=== PATIENT | female | born 1935 | race Caucasian/White ===

== ENCOUNTER 2016-09-27 10:25 | Emergency (ER) | payer MEDICARE ==
[~2016-09-27] VITALS: Ht 167.6 cm; Wt 82.0 kg
[~2016-09-27 10:25] MED LIST: HYDR-3533 PO; NIFE60TA58 PO; ZOFR4TAB3 SL
[2016-09-27 11:06] VITALS: BP 146/87; PULSE 100; RESP 22; TEMP 98; O2SAT 100
--- NOTE | 2016-09-27 11:42 | PD ---
HPI Chief Complaint: Medical Clearance Time Seen by Provider: 11:16 Travel History International Travel<30 days: No Contact w/Intl Traveler<30days: No Traveled to known affect area: No History of Present Illness HPI 80-year-old female with history of hypertension, anxiety here with complaint of high blood pressure. Patient states that she was due to have a physicians appointment today. She typically gets "white coat hypertension", and gets quite nervous and anxious prior to physician appointments. Patient checked her blood pressure at home multiple times prior to going to her physician appointment and noted to be elevated, prompting her ER visit. She did have some mild associated palpitations with this, but no chest pain, shortness of breath. No recent changes in any of her medicines. She is here, she states her symptoms have essentially resolved. PFSH Past Medical History Arthritis: Yes Asthma: No Autoimmune Disease: No Blood Disorders: No Anxiety: Yes Depression: No Heart Rhythm Problems: No Cancer: No Cardiovascular Problems: Yes High Cholesterol: No Chemotherapy: No Chest Pain: Yes Congestive Heart Failure: No COPD: No Cerebrovascular Accident: Yes (TIA) Diabetes: No Diminished Hearing: No Endocrine: No Gastrointestinal Disorders: Yes GERD: Yes Glaucoma: No Genitourinary: No Headaches: Yes (WHEN PT WAS YOUNGER ) Hepatitis: No Hiatal Hernia: No Hypertension: Yes Immune Disorder: No Kidney Stones: No Musculoskeletal: No Neurologic: Yes (DIZZINESS) Psychiatric: No Reproductive: No Respiratory: No Immunizations Current: Yes Migraines: Yes Myocardial Infarction: No Pneumonia: Yes Radiation Therapy: No Renal Failure: No Seizures: No Sickle Cell Disease: No Sleep Apnea: No Thyroid Disease: No Ulcer: Yes Tetanus Vaccination: > 5 Years Menopausal: Yes : 6 Para: 6 Past Surgical History Abdominal Surgery: No AICD: No Appendectomy: No Arteriovenous Shunt: No Cardiac Surgery: No Cholecystectomy: No Ear Surgery: No Endocrine Surgery: No Eye Surgery: Yes (CATARACT, IMPLANTS) Genitourinary Surgery: No Gynecologic Surgery: No Insulin Pump: No Joint Replacement: No Oral Surgery: No Pacemaker: No Thoracic Surgery: No Other Surgery: Yes (BLISTER REMOVED NEAR RIGHT EYE) Social History Alcohol Use: No Tobacco Use: No Substance Use: No Allergies-Medications (Allergen,Severity, Reaction): Coded Allergies: Biaxin (Verified Allergy, Severe, Ulcers, 09/27/16) Cephalosporins (Verified Allergy, Severe, RASH, 09/27/16) Codeine (Verified Allergy, Severe, CHEST TIGHTNESS, 09/27/16) Cortisone (Verified Allergy, Severe, 09/27/16) Iodine (Verified Allergy, Severe, 09/27/16) Keflex (Verified Allergy, Severe, "CHEST WALDRON LIKE FIRE", 09/27/16) Latex (Verified Allergy, Severe, Rash, 09/27/16) Penicillin (Verified Allergy, Severe, "CHEST BURNED LIKE FIRE", 09/27/16) Sulfa (Verified Allergy, Severe, SWELLING", 09/27/16) Aspirin (Verified Adverse Reaction, Severe, INDIGESTION, 09/27/16) Corticosteroids (Verified Adverse Reaction, Severe, NOT SURE, 09/27/16) Valium (Verified Adverse Reaction, Severe, "SEVERE HEADACHE", 09/27/16) Uncoded Allergies: PLASTIC/LATEX? (Adverse Reaction, Mild, RASH,, 01/14/04) POLYESTER (Adverse Reaction, Mild, "BURNING FEELING", 11/13/08) Reported Meds & Prescriptions Reported Meds & Active Scripts Active Zofran Odt (Ondansetron Odt) 4 Mg Tab 4 Mg SL Q8HR PRN Lortab (Hydrocodone-Acetaminophen) 5-325 Mg Tab 1-2 Tab PO Q6H PRN Reported Nifedipine ER 24 HR (Nifedipine) 60 Mg Tab 60 Mg PO DAILY Review of Systems Except as stated in HPI: all other systems reviewed are Neg Physical Exam Narrative GENERAL: Well-appearing elderly female in no acute distress SKIN: Warm and dry. HEAD: Normocephalic. EYES: No scleral icterus. No injection or drainage. ENT: Mucous membranes pink and moist. NECK: Supple CARDIOVASCULAR: Regular rate and rhythm. No murmur appreciated. RESPIRATORY: No accessory muscle use. Clear to auscultation. Breath sounds equal bilaterally. GASTROINTESTINAL: Abdomen soft, non-tender, nondistended. MUSCULOSKELETAL: Normal gait NEUROLOGICAL: Awake and alert. Normal speech. PSYCHIATRIC: Anxious Data Data Last Documented VS Vital Signs Date Time Temp Pulse Resp B/P Pulse Ox O2 Delivery O2 Flow Rate FiO2 09/27/16 11:06 98.0 100 22 146/87 100 Orders Electrocardiogram (09/27/16 ) MDM Medical Decision Making Medical Screen Exam Complete: Yes Emergency Medical Condition: Yes Medical Record Reviewed: Yes Differential Diagnosis 80-year-old female with history of anxiety, hypertension here with complaint of same. Symptoms seem very situational with regards to similar symptoms occurring in the past with white coat hypertension. Now that she is here her symptoms have resolved. Given the slight associated palpitations, differential includes arrhythmia. No symptoms of hypertensive urgency/emergency. Narrative Course Patient placed on monitor. Twelve-lead EKG shows sinus rhythm without notable ST abnormalities, normal intervals. Specifically no evidence of prolonged QT, W Peter view, Brugada. Patient was reassured and will be discharged to home. Follow up with outpatient primary care provider for her anxiety. Diagnosis Primary Impression: Anxiety Additional Impression: Hypertension Qualified Code: I10 - Essential hypertension Referrals: Primary Care Physician call for appointment Patient Instructions: Anxiety (ED), Chronic Hypertension (ED), General Instructions Additional Instructions: Follow-up with primary care provider to manage blood pressure, anxiety. Return to the ER for the warning signs discussed. Med/Other Pt SpecificInfo: No Change to Meds Disposition: 01 DISCHARGE HOME Condition: Stable Merlene Ellis MD Sep 27, 2016 11:42
--- NOTE | 2016-09-28 23:13 | EKG ---
Date Performed: 09/27/2016 Time Performed: 11:26:39 PTAGE: 80 years EKG: Sinus rhythm POSSIBLE ANTERIOR MYOCARDIAL INFARCTION ABNORMAL ECG PREVIOUS TRACING : 01/11/2016 16.31 DOCTOR: Hoang Bills Interpretating Date/Time 09/28/2016 23:07:27
== END 2016-09-27 11:59 | disposition home or self-care (01) ==
LOC: NEDAMB 10:25
DX: F41.9 Anxiety disorder, unspecified (principal); I10 Essential (primary) hypertension
CPT/HCPCS: 93005

== ENCOUNTER 2017-11-23 15:03 | Emergency (ER) | payer MEDICARE ==
[~2017-11-23] VITALS: Ht 167.6 cm; Wt 81.3 kg
[2017-11-23 15:18] VITALS: BP 196/108; PULSE 95; RESP 17; TEMP 97.9; O2SAT 99
--- NOTE | 2017-11-23 15:37 | PD ---
HPI Chief Complaint: Headache Time Seen by Provider: 15:22 Travel History International Travel<30 days: No Contact w/Intl Traveler<30days: No Traveled to known affect area: No History of Present Illness HPI 81-year-old female with PMH of hypertension, TIA, anxiety presents to the ED for evaluation of 3/10 left lateral frontal headache. Gradual onset around lunchtime today. Patient endorses having an aura slightly before the headache began. On presentation she complains of mild nausea and dizziness. She denies vision changes, chest pain, palpitations, shortness of breath, abdominal pain, vomiting, dysuria, weakness of the extremities, difficulties with word finding. Patient states "I had my carotids checked not too long ago." She endorses compliance with daily Norvasc. PFSH Past Medical History Arthritis: Yes Asthma: No Autoimmune Disease: No Blood Disorders: No Anxiety: Yes Depression: No Heart Rhythm Problems: No Cancer: No Cardiovascular Problems: Yes High Cholesterol: No Chemotherapy: No Chest Pain: Yes Congestive Heart Failure: No COPD: No Cerebrovascular Accident: Yes (TIA) Diabetes: No Diminished Hearing: No Endocrine: No Gastrointestinal Disorders: Yes GERD: Yes Glaucoma: No Genitourinary: No Headaches: Yes (WHEN PT WAS YOUNGER ) Hepatitis: No Hiatal Hernia: No Hypertension: Yes Immune Disorder: No Kidney Stones: No Musculoskeletal: No Neurologic: Yes (DIZZINESS) Psychiatric: No Reproductive: No Respiratory: No Immunizations Current: Yes Migraines: Yes Myocardial Infarction: No Pneumonia: Yes Radiation Therapy: No Renal Failure: No Seizures: No Sickle Cell Disease: No Sleep Apnea: No Thyroid Disease: No Ulcer: Yes Menopausal: Yes : 6 Para: 6 Past Surgical History Abdominal Surgery: No AICD: No Appendectomy: No Arteriovenous Shunt: No Cardiac Surgery: No Cholecystectomy: No Ear Surgery: No Endocrine Surgery: No Eye Surgery: Yes (CATARACT, IMPLANTS) Genitourinary Surgery: No Gynecologic Surgery: No Insulin Pump: No Joint Replacement: No Oral Surgery: No Pacemaker: No Thoracic Surgery: No Other Surgery: Yes (BLISTER REMOVED NEAR RIGHT EYE) Social History Alcohol Use: No Tobacco Use: No Substance Use: No Allergies-Medications (Allergen,Severity, Reaction): Coded Allergies: Sulfa (Sulfonamide Antibiotics) (Unverified Allergy, Severe, SWELLING", ) cefepime (Unverified Allergy, Severe, RASH, 03/28/17) ceftaroline fosamil (Unverified Allergy, Severe, RASH, 03/28/17) cephalexin (Unverified Allergy, Severe, "CHEST WALDRON LIKE FIRE", 03/28/17) clarithromycin (Unverified Allergy, Severe, Ulcers, 03/28/17) codeine (Unverified Allergy, Severe, CHEST TIGHTNESS, 03/28/17) cortisone (Unverified Allergy, Severe, 03/28/17) iodine (Unverified Allergy, Severe, 03/28/17) latex (Unverified Allergy, Severe, Rash, 03/28/17) penicillin G (Unverified Allergy, Severe, "CHEST BURNED LIKE FIRE", ) potassium iodide (Unverified Allergy, Severe, 03/28/17) povidone-iodine (Unverified Allergy, Severe, 03/28/17) sodium iodide (Unverified Allergy, Severe, 03/28/17) sodium iodide (Unverified Allergy, Severe, 03/28/17) amcinonide (Unverified Adverse Reaction, Severe, NOT SURE, 03/28/17) aspirin (Unverified Adverse Reaction, Severe, INDIGESTION, 03/28/17) beclomethasone (Unverified Adverse Reaction, Severe, NOT SURE, 03/28/17) betamethasone (Unverified Adverse Reaction, Severe, NOT SURE, 03/28/17) desoximetasone (Unverified Adverse Reaction, Severe, NOT SURE, 03/28/17) dexamethasone (Unverified Adverse Reaction, Severe, NOT SURE, 03/28/17) diazepam (Unverified Adverse Reaction, Severe, "SEVERE HEADACHE", 03/28/17) fludrocortisone (Unverified Adverse Reaction, Severe, NOT SURE, 03/28/17) flunisolide (Unverified Adverse Reaction, Severe, NOT SURE, 03/28/17) fluocinolone acetonide (Unverified Adverse Reaction, Severe, NOT SURE, ) fluocinonide (Unverified Adverse Reaction, Severe, NOT SURE, 03/28/17) fluorometholone (Unverified Adverse Reaction, Severe, NOT SURE, 03/28/17) flurandrenolide (Unverified Adverse Reaction, Severe, NOT SURE, 03/28/17) fluticasone (Unverified Adverse Reaction, Severe, NOT SURE, 03/28/17) fluticasone furoate (Unverified Adverse Reaction, Severe, NOT SURE, ) hydrocortisone (Unverified Adverse Reaction, Severe, NOT SURE, 03/28/17) methylprednisolone (Unverified Adverse Reaction, Severe, NOT SURE, 03/28/17 ) mometasone furoate (Unverified Adverse Reaction, Severe, NOT SURE, 03/28/17 ) prednisolone (Unverified Adverse Reaction, Severe, NOT SURE, 03/28/17) prednisone (Unverified Adverse Reaction, Severe, NOT SURE, 03/28/17) triamcinolone (Unverified Adverse Reaction, Severe, NOT SURE, 03/28/17) Uncoded Allergies: PLASTIC/LATEX? (Adverse Reaction, Mild, RASH,, 01/14/04) POLYESTER (Adverse Reaction, Mild, "BURNING FEELING", 11/13/08) Reported Meds & Prescriptions Reported Meds & Active Scripts Active Zofran Odt (Ondansetron Odt) 4 Mg Tab 4 Mg SL Q8HR PRN Lortab (Hydrocodone-Acetaminophen) 5-325 Mg Tab 1-2 Tab PO Q6H PRN Reported Nifedipine ER 24 HR (Nifedipine) 60 Mg Tab 60 Mg PO DAILY Review of Systems Except as stated in HPI: all other systems reviewed are Neg Physical Exam Narrative GENERAL: Well-nourished, well-developed pleasant elderly white female in no acute distress. SKIN: Focused skin assessment warm/dry. HEAD: Normocephalic. Atraumatic. EYES: No scleral icterus. No injection or drainage. PERRLA. EOMI. NECK: Supple, trachea midline. No JVD or lymphadenopathy. CARDIOVASCULAR: Regular rate and rhythm without murmurs, gallops, or rubs. RESPIRATORY: Breath sounds clear and equal bilaterally. No accessory muscle use. GASTROINTESTINAL: Abdomen soft, non-tender, nondistended. Active bowel sounds. MUSCULOSKELETAL: No cyanosis, or edema. Moves the limbs spontaneously. NEUROLOGICAL: Awake and alert. Cranial nerves II through XII intact. Motor and sensory grossly within normal limits. Five out of 5 muscle strength in all muscle groups. Normal speech. BACK: Nontender without obvious deformity. No CVA tenderness. Data Data Last Documented VS Vital Signs Date Time Temp Pulse Resp B/P (MAP) Pulse Ox O2 Delivery O2 Flow Rate FiO2 11/23/17 18:49 11/23/17 18:00 84 17 98 Room Air 11/23/17:18 97.9 Orders Orders Complete Blood Count With Diff (11/23/17 15:32) Comprehensive Metabolic Panel (11/23/17 15:32) Prothrombin Time / Inr (Pt) (11/23/17 15:32) Act Partial Throm Time (Ptt) (11/23/17 15:32) Ct Brain W/O Iv Contrast(Rout) (11/23/17 15:32) Ecg Monitoring (11/23/17 15:32) Iv Access Insert/Monitor (11/23/17 15:32) Oximetry (11/23/17 15:32) Sodium Chloride 0.9% Flush (Ns Flush) (11/23/17 15:45) Acetaminophen (Tylenol) (11/23/17 15:45) Ondansetron Inj (Zofran Inj) (11/23/17 15:45) Electrocardiogram (11/23/17 ) Troponin I (11/23/17 15:34) Labetalol Inj (Trandate Inj) (11/23/17 15:45) Thyroid Stimulating Hormone (11/23/17 15:55) Labetalol Inj (Trandate Inj) (11/23/17 17:15) Ed Discharge Order (11/23/17 18:06) Labs Laboratory Tests Test 11/23/17 15:40 White Blood Count 11.5 TH/MM3 Red Blood Count 5.11 MIL/MM3 Hemoglobin 15.2 GM/DL Hematocrit 44.3 % Mean Corpuscular Volume 86.6 FL Mean Corpuscular Hemoglobin 29.7 PG Mean Corpuscular Hemoglobin Concent 34.3 % Red Cell Distribution Width 15.1 % Platelet Count 267 TH/MM3 Mean Platelet Volume 8.3 FL Neutrophils (%) (Auto) 82.9 % Lymphocytes (%) (Auto) 9.3 % Monocytes (%) (Auto) 6.4 % Eosinophils (%) (Auto) 1.1 % Basophils (%) (Auto) 0.3 % Neutrophils # (Auto) 9.6 TH/MM3 Lymphocytes # (Auto) 1.1 TH/MM3 Monocytes # (Auto) 0.7 TH/MM3 Eosinophils # (Auto) 0.1 TH/MM3 Basophils # (Auto) 0.0 TH/MM3 CBC Comment DIFF FINAL Differential Comment Prothrombin Time 9.4 SEC Prothromb Time International Ratio 0.9 RATIO Activated Partial Thromboplast Time 29.2 SEC Blood Urea Nitrogen 15 MG/DL Creatinine 0.91 MG/DL Random Glucose 109 MG/DL Total Protein 8.3 GM/DL Albumin 4.0 GM/DL Calcium Level 9.4 MG/DL Alkaline Phosphatase 89 U/L Aspartate Amino Transf (AST/SGOT) 23 U/L Alanine Aminotransferase (ALT/SGPT) 36 U/L Total Bilirubin 0.2 MG/DL Sodium Level 142 MEQ/L Potassium Level 4.1 MEQ/L Chloride Level 109 MEQ/L Carbon Dioxide Level 26.6 MEQ/L Anion Gap 6 MEQ/L Estimat Glomerular Filtration Rate 59 ML/MIN Troponin I LESS THAN 0.02 NG/ML Thyroid Stimulating Hormone 3rd Gen 2.080 uIU/ML MDM Medical Decision Making Medical Screen Exam Complete: Yes Emergency Medical Condition: Yes Differential Diagnosis Hypertension versus hypertensive urgency versus cephalgia versus TIA versus CVA versus dysrhythmia versus other Narrative Course 81-year-old female with PMH of hypertension, TIA, anxiety presents to the ED for evaluation of 3/10 left lateral frontal headache. Gradual onset around lunchtime today. Preceded by an aura of flashing lights. On presentation she complains of mild nausea and dizziness. Patient states "I had my carotids checked not too long ago." She endorses compliance with daily Norvasc. Pulse 95, BP 196/108 on presentation. No focal neuro deficits on exam. IV was established. Patient was administered 4 mg Zofran and 20 mg labetalol IV. Patient's daughter is at bedside and states that the patient is noncompliant with her daily antihypertensive medications. The daughter states that she is concerned that her mother is unable to live on her own but unwilling to give up her independence. CBC and CMP without concerning abnormality. TSH normal. EKG: Rate 82, sinus rhythm. WA interval 191, QRS 96, QTc 414. Normal axis. No acute ST changes. Reviewed by Dr. Camacho. Troponin negative 1. CT brain no acute findings per radiology read. On recheck patient reports improvement of her headache symptoms. BP 173/84. Patient's administered a second dose of labetalol. BP improved to 161/76. The rn case management was called to bedside, recommend follow-up with the primary care for home health needs. Family are agreeable with this plan. Patient is instructed to resume medications as previously prescribed, follow up with her primary care provider this week as discussed, return for worsening symptoms. She indicated understanding of the instructions. She is agreeable to the care plan. She is stable and discharged home. Diagnosis Primary Impression: Hypertension Qualified Codes: I10 - Essential (primary) hypertension Additional Impression: Headache Qualified Codes: R51 - Headache Referrals: Primary Care Physician Additional Instructions: Rest, hydrate. Resume normal, gentle activities as tolerated. Resume at home medications as previously prescribed. Follow with your primary care this week as discussed. Return to the ED for worsening symptoms or any urgent or emergent medical condition. Disposition: 01 DISCHARGE HOME Condition: Stable Berenice Mortensen Nov 23, 2017 15:37
[2017-11-23 15:41] VITALS: O2SAT 98
[2017-11-23] MEDS ORDERED: LABETALOL HCL 100 MG/20 ML VIAL IV PUSH ONE ×2 (15:45→17:15)
[2017-11-23] MEDS ORDERED: ONDANSETRON HCL 4 MG/2 ML VIAL IV PUSH ONE (15:45)
[2017-11-23] MEDS ORDERED: ACETAMINOPHEN 325 MG TAB PO ONE (15:45)
[2017-11-23] MEDS ORDERED: SODIUM CHLORIDE 0.9% FLUSH 10 ML FLUSH IVF PRN (15:45)
[2017-11-23 16:07] LABS: AUTOMATED NEUTROPHIL # 9.6 TH/MM3 (1.8-7.7); BASOPHIL % 0.3 % (0.0-2.0); EOSINOPHIL # 0.1 TH/MM3 (0-0.4); EOSINOPHIL % 1.1 % (0.0-4.0); HEMATOCRIT 44.3 % (35.0-46.0); HEMOGLOBIN 15.2 GM/DL (11.6-15.3); LYMPH % 9.3 % (9.0-44.0); LYMPHOCYTE # 1.1 TH/MM3 (1.0-4.8); MEAN CELL VOLUME 86.6 FL (80.0-100.0); MEAN CORPUSCULAR HEMOGLOBIN 29.7 PG (27.0-34.0); MEAN CORPUSCULAR HGB CONC 34.3 % (32.0-36.0); MEAN PLATELET VOLUME 8.3 FL (7.0-11.0); MONO % 6.4 % (0.0-8.0); MONOCYTE # 0.7 TH/MM3 (0-0.9); NEUT % 82.9 % (16.0-70.0); PLATELET COUNT 267 TH/MM3 (150-450); RED BLOOD COUNT 5.11 MIL/MM3 (4.00-5.30); RED CELL DISTRIBUTION WIDTH 15.1 % (11.6-17.2); WHITE BLOOD COUNT 11.5 TH/MM3 (4.0-11.0)
[2017-11-23 16:18] LABS: INTERNATIONAL NORMALIZED RATIO 0.9 RATIO; PROTHROMBIN TIME - PATIENT 9.4 SEC (9.8-11.6)
[2017-11-23 16:27] VITALS: BP 205/85; PULSE 94; RESP 17; O2SAT 100
--- NOTE | 2017-11-23 16:38 | RADRPT ---
EXAM DATE/TIME: 11/23/2017 16:06 [facility] COMPARISON: CT BRAIN W/O CONTRAST, October 31, 2015, 20:38. INDICATIONS : Patient complains of headache, visual disturbance RADIATION DOSE: 35.35 CTDIvol (mGy) MEDICAL HISTORY : Hypertension. TIA SURGICAL HISTORY : Non-responsive. ENCOUNTER: Initial ACUITY: 1 day PAIN SCALE: 3/10 LOCATION: cranial TECHNIQUE: Multiple contiguous axial images were obtained of the head. Using automated exposure control and adj ustment of the mA and/or kV according to patient size, radiation dose was kept as low as reasonably a chievable to obtain optimal diagnostic quality images. DICOM format image data is available electro nically for review and comparison. FINDINGS: CEREBRUM: There is mild generalized atrophy. Ventricles are normal in size. There is mild periventricular white matter low attenuation, stable from the prior study. No evidence of midline shift, mass lesion, hem orrhage or acute infarction. No extra-axial fluid collections are seen. POSTERIOR FOSSA: The cerebellum and brainstem demonstrate no acute finding. The 4th ventricle is midline. The cerebe llopontine angle is unremarkable. EXTRACRANIAL: Visualized sinuses are clear. SKULL: The calvaria is intact. No evidence of skull fracture. CONCLUSION: 1. Stable noncontrast head CT. No acute finding is identified. 2. Stable chronic changes include mild generalized atrophy and chronic periventricular white matter c chi. Cody Marcial MD on November 23, 2017 at 16:32 Board Certified Radiologist. This report was verified electronically.
[2017-11-23 16:45] LABS: ALKALINE PHOSPHATASE 89 U/L (45-117); TOTAL BILIRUBIN ADULT 0.2 MG/DL (0.2-1.0); TOTAL PROTEIN 8.3 GM/DL (6.4-8.2)
[2017-11-23 16:46] LABS: ALT (GPT) 36 U/L (10-53); AST (GOT) 23 U/L (15-37); BICARBONATE 26.6 MEQ/L (21.0-32.0); BLOOD UREA NITROGEN 15 MG/DL (7-18); CALCIUM 9.4 MG/DL (8.5-10.1); CHLORIDE 109 MEQ/L (98-107); CREATININE 0.91 MG/DL (0.50-1.00); GLOMERULAR FILTRATION RATE 59 ML/MIN (>89); GLUCOSE,RANDOM 109 MG/DL (74-106); SODIUM (NA) 142 MEQ/L (136-145)
[2017-11-23 16:51] VITALS: BP 173/83; PULSE 81; RESP 17; O2SAT 100
[2017-11-23 17:22] VITALS: BP 177/82; PULSE 83; RESP 17; O2SAT 100
[2017-11-23 18:00] VITALS: BP 161/76; PULSE 84; RESP 17; O2SAT 98
--- NOTE | 2017-11-25 12:59 | EKG ---
Date Performed: 11/23/2017 Time Performed: 17:20:06 PTAGE: 81 years EKG: NORMAL Sinus rhythm Nondiagnostic T-waves in inferior leads BORDERLINE ECG Since PREVIOUS TRACING , no significant change noted PREVIOUS TRACIN09/27/2016 11.26 DOCTOR: Ross Santana Interpretating Date/Time 11/25/2017 12:57:15
== END 2017-11-23 18:51 | disposition home or self-care (01) ==
LOC: NEPE 15:03
DX: I10 Essential (primary) hypertension (principal); R51 Headache; R11.0 Nausea; Z86.73 Personal history of transient ischemic attack (TIA), and cerebral infarction without residual deficits
CPT/HCPCS: 70450; 80053; 84443; 84484; 85025; 85610; 85730; 93005; 96374; 96375; 96376; 99285; J2405

== ENCOUNTER 2018-02-19 09:19 | Observation (INO) ==
--- NOTE | 2018-02-19 10:26 | XR ---
EXAM DATE: 02/19/2018 10:22 AM EDT AGE/SEX: 82 years / Female INDICATIONS: Chest pain. Short of breath. CLINICAL DATA: This is the patient's initial encounter. Patient reports that signs and symptoms have been present for 1 day and indicates a pain score of 1/10. MEDICAL/SURGICAL HISTORY: None. None. COMPARISON: [facility] [place], CHEST SINGLE AP, 10/31/2015. . FINDINGS: Minimal parenchymal changes present in the right suprahilar region. Left lung clear. The heart and pulmonary vascularity are normal. The portion of the bony skeleton visualized is unremarkable. CONCLUSION: Minimal parental changes right suprahilar region. PA and lateral chest would be beneficial when the patient's clinically stable Electronically signed by: Dani Mosley MD 02/19/2018 10:25 AM EDT
[2018-02-19 10:28] LABS: Baso % (Auto) 0.3 % (0.0-2.0); Eos # (Auto) 0.1 th/mm3 (0.0-0.4); Eos % (Auto) 1.7 % (0.0-4.0); Hemoglobin 15.5 gm/dL (11.6-15.3); Lymph # (Auto) 1.1 th/mm3 (1.0-4.8); Mean Corpuscular HGB Conc 33.6 % (32.0-36.0); Mean Corpuscular Volume 86.2 fL (80.0-100.0); Mean Platelet Volume 8.8 fL (7.0-11.0); Mono # (Auto) 0.7 th/mm3 (0.0-0.9); Mono % (Auto) 9.5 % (0.0-8.0); Neut # (Auto) 5.9 th/mm3 (1.8-7.7); Neut % (Auto) 74.5 % (16.0-70.0); Platelet Count 244 th/mm3 (150-450); Red Blood Count 5.34 mil/mm3 (4.00-5.30); Red Cell Distribution Width 15.1 % (11.6-17.2); White Blood Count 7.9 th/mm3 (4.0-11.0)
[2018-02-19 10:37] LABS: Bilirubin,Urine Negative (Negative); Clarity,Urine Clear (Clear); Color,Urine Straw (Yellw/Straw); Glucose,Urine (UA) Negative (Negative); Leukocyte Esterase,Urine Small (Negative); Nitrite,Urine Negative (Negative); Specific Gravity,Urine 1.005 (1.002-1.035); Squamous Epithelial Cell,Urine 1 /hpf (0-5)
[2018-02-19 10:39] LABS: Activated Partial Thrombo Time 27.3 sec (24.3-30.1); INR 0.9 Ratio; Prothrombin Time 9.4 sec (9.8-11.6)
[2018-02-19 10:49] LABS: Albumin 4.1 g/dL (3.4-5.0); Anion Gap 13 meq/L (5-15); Aspartate Aminotransferase 20 U/L (15-37); Blood Urea Nitrogen 19 mg/dL (7-18); Carbon Dioxide 24.2 meq/L (21.0-32.0); Chloride 100 meq/L (98-107); Glomerular Filtration Rate 59 mL/min (>89); Glucose,Random 133 mg/dL (74-106); Magnesium 2.2 mg/dL (1.5-2.5); Potassium 3.8 meq/L (3.5-5.1); Sodium 137 meq/L (136-145)
[2018-02-19 10:50] LABS: Alanine Aminotransferase 30 U/L (10-53)
[2018-02-19 10:54] LABS: Alkaline Phosphatase 95 U/L (45-117); Total Protein 8.2 g/dL (6.4-8.2)
[2018-02-19 10:56] LABS: Creatine Kinase 79 U/L (26-192)
--- NOTE | 2018-02-19 11:19 | ED ---
HPI General Chief Complaint: Respiratory Symptoms Stated Complaint: SOB Time Seen by Provider: 02/19/18 09:51 Source: patient and family History of Present Illness 82-year-old female presents with shortness of breath and chest pain. Her daughter states she had a workup a couple years ago that she believes was okay but she is not sure. She states she has been admitted to [facility] before. Patient denies any other concurrent complaints. 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 Milligan did her last stress test. Quality is pressure MD Complaint: shortness of breath Onset (ago): day(s) Severity: moderate Consistency/Duration: intermittent Relieving factors: nothing Exacerbating factors: movement Associated symptoms: chest pain Treatment prior to arrival: none Related Data Home oxygen amount: none Home Medications Medication Instructions Recorded Confirmed nifedipine 30 mg PO DAILY 02/19/18 02/19/18 Allergies Allergy/AdvReac Type Severity Reaction Status Date / Time cefepime Allergy Severe RASH Verified 02/19/18 11:26 ceftaroline fosamil Allergy Severe RASH Verified 02/19/18 11:26 cephalexin Allergy Severe "CHEST Verified 02/19/18 11:26 WALDRON LIKE FIRE" clarithromycin Allergy Severe Ulcers Verified 02/19/18 11:26 codeine Allergy Severe CHEST Verified 02/19/18 11:26 TIGHTNESS cortisone Allergy Severe Rash Verified 02/19/18 11:26 iodine Allergy Severe Rash Verified 02/19/18 11:26 latex Allergy Severe Rash Verified 02/19/18 11:26 penicillin G Allergy Severe "CHEST Verified 02/19/18 11:26 BURNED LIKE FIRE" potassium iodide Allergy Severe Rash Verified 02/19/18 11:26 povidone-iodine Allergy Severe Rash Verified 02/19/18 11:26 sodium iodide Allergy Severe Rash Verified 02/19/18 11:26 sodium iodide Allergy Severe Rash Verified 02/19/18 11:26 Sulfa (Sulfonamide Allergy Severe SWELLING" Verified 02/19/18 11:26 Antibiotics) amcinonide AdvReac Severe NOT SURE Verified 02/19/18 11:26 aspirin AdvReac Severe INDIGESTION Verified 02/19/18 11:26 beclomethasone AdvReac Severe NOT SURE Verified 02/19/18 11:26 betamethasone AdvReac Severe NOT SURE Verified 02/19/18 11:26 desoximetasone AdvReac Severe NOT SURE Verified 02/19/18 11:26 dexamethasone AdvReac Severe NOT SURE Verified 02/19/18 11:26 diazepam AdvReac Severe "SEVERE Verified 02/19/18 11:26 HEADACHE" fludrocortisone AdvReac Severe NOT SURE Verified 02/19/18 11:26 flunisolide AdvReac Severe NOT SURE Verified 02/19/18 11:26 fluocinolone acetonide AdvReac Severe NOT SURE Verified 02/19/18 11:26 fluocinonide AdvReac Severe NOT SURE Verified 02/19/18 11:26 fluorometholone AdvReac Severe NOT SURE Verified 02/19/18 11:26 flurandrenolide AdvReac Severe NOT SURE Verified 02/19/18 11:26 fluticasone AdvReac Severe NOT SURE Verified 02/19/18 11:26 fluticasone furoate AdvReac Severe NOT SURE Verified 02/19/18 11:26 hydrocortisone AdvReac Severe NOT SURE Verified 02/19/18 11:26 methylprednisolone AdvReac Severe NOT SURE Verified 02/19/18 11:26 mometasone furoate AdvReac Severe NOT SURE Verified 02/19/18 11:26 prednisolone AdvReac Severe NOT SURE Verified 02/19/18 11:26 prednisone AdvReac Severe NOT SURE Verified 02/19/18 11:26 triamcinolone AdvReac Severe NOT SURE Verified 02/19/18 11:26 PLASTIC/LATEX? AdvReac Mild RASH, Uncoded 02/19/18 11:26 POLYESTER AdvReac Mild "BURNING Uncoded 02/19/18 11:26 FEELING" Review of Systems Except as stated in HPI: all other systems reviewed are negative [facility] Medical History Medical History Hypertension (Acute) TIA (transient ischemic attack) (Acute) Surgical History Surgical History History of eye surgery (Acute) Social History Social History Substance History: No History of Abuse Second Hand Smoke Exposure: No Smoking Status: Never smoker How Often Do You Have a Drink Containing Alcohol: Never Recent Travel in [facility] within the Last 8 Weeks: No Recent Out of Country Travel within the Last 8 Weeks: No Immunization History Tetanus Immunization: <5 Years Hx Influenza Vaccine This Season: Yes Exam Narrative Exam Narrative: GENERAL: 82 y/o female in no apparent distress SKIN: Focused skin assessment warm/dry. HEAD: Atraumatic. Normocephalic. EYES: Pupils equal and round. No scleral icterus. No injection or drainage. ENT: No nasal bleeding or discharge. Mucous membranes pink and moist. NECK: Trachea midline. CARDIOVASCULAR: Regular rate and rhythm. RESPIRATORY: No accessory muscle use. Clear to auscultation. Breath sounds equal bilaterally. GASTROINTESTINAL: Abdomen soft, non-tender, nondistended MUSCULOSKELETAL: No obvious deformities. No clubbing. No cyanosis NEUROLOGICAL: Awake. Motor grossly within normal limits. Normal speech Course Reevaluation(s) Reevaluation #1: Patient without new symptoms and agrees to chest pain observation for her chest pain and shortness of breath. Other ER workup without emergent process. There was a delay in lab when they did not see BNP that was originally ordered and this was then ran and was normal. Initial Documented Vital Signs Temperature 97.8 F 02/19/18 09:26 Pulse Rate 96 H 02/19/18 09:26 Respiratory Rate 20 02/19/18 09:26 Blood Pressure 167/79 H 02/19/18 09:26 Pulse Oximetry 99 02/19/18 09:26 Last Documented Vital Signs Temperature 97.8 F 02/19/18 09:26 Pulse Rate 80 02/19/18 13:31 Respiratory Rate 18 02/19/18 13:31 Blood Pressure 159/74 H 02/19/18 13:31 Pulse Oximetry 95 02/19/18 13:31 Medical Decision Making [facility] Narrative Medical decision making narrative: 82-year-old female with chest pain and shortness of breath over the past couple of days. Will check workup and reevaluate. Differential Diagnosis Differential Diagnosis: CHF, angina, anemia, renal failure, pneumonia Lab Data Lab results reviewed: Yes I reviewed the patient's lab results. Result diagrams: 02/19/18 09:56 02/19/18 09:56 Lab Results 02/19/18 02/19/18 02/19/18 Range/Units 09:56 09:56 09:56 WBC 7.9 (4.0-11.0) th/mm3 RBC 5.34 H (4.00-5.30) mil/mm3 Hgb 15.5 H (11.6-15.3) gm/dL Hct 46.0 (35.0-46.0) % MCV 86.2 (80.0-100.0) fL MCH 29.0 (27.0-34.0) pg MCHC 33.6 (32.0-36.0) % RDW 15.1 (11.6-17.2) % Plt Count 244 (150-450) th/mm3 MPV 8.8 (7.0-11.0) fL Neut % (Auto) 74.5 H (16.0-70.0) % Lymph % (Auto) 14.0 (9.0-44.0) % Rich % (Auto) 9.5 H (0.0-8.0) % Eos % (Auto) 1.7 (0.0-4.0) % Baso % (Auto) 0.3 (0.0-2.0) % Neut # (Auto) 5.9 (1.8-7.7) th/mm3 Lymph # (Auto) 1.1 (1.0-4.8) th/mm3 Rich # (Auto) 0.7 (0.0-0.9) th/mm3 Eos # (Auto) 0.1 (0.0-0.4) th/mm3 Baso # (Auto) 0.0 (0.0-0.2) th/mm3 WBC Differential . Differential Comment Auto diff final PT 9.4 L (9.8-11.6) sec INR 0.9 Ratio APTT 27.3 (24.3-30.1) sec Sodium 137 (136-145) meq/L Potassium 3.8 (3.5-5.1) meq/L Chloride 100 (98-107) meq/L Carbon Dioxide 24.2 (21.0-32.0) meq/L Anion Gap 13 (5-15) meq/L BUN 19 H (7-18) mg/dL Creatinine 0.91 (0.50-1.00) mg/dL Estimated GFR 59 L (>89) mL/min Random Glucose 133 H (74-106) mg/dL Lactic Acid (0.4-2.0) mmol/L Calcium 10.0 (8.5-10.1) mg/dL Magnesium 2.2 (1.5-2.5) mg/dL Total Bilirubin 0.4 (0.2-1.0) mg/dL AST 20 (15-37) U/L ALT 30 (10-53) U/L Alkaline Phosphatase 95 (45-117) U/L Total Creatine Kinase 79 (26-192) U/L Troponin I Less than 0.02 L (0.02-0.05) ng/mL B-Natriuretic Peptide (0-100) pg/mL Total Protein 8.2 (6.4-8.2) g/dL Albumin 4.1 (3.4-5.0) g/dL Urine Color (Yellw/Straw) Urine Clarity (Clear) Urine pH (5.0-8.5) Ur Specific Mc[place] (1.002-1.035) Urine Protein (Neg-Trace) mg/dL Urine Glucose (UA) (Negative) mg/dL Urine Ketones (Negative) mg/dL Urine Occult Blood (Negative) Urine Nitrate (Negative) Urine Bilirubin (Negative) Urine Urobilinogen (Less than 2) mg/dL Ur Leukocyte Esterase (Negative) Urine RBC (0-3) /hpf Urine WBC (0-5) /hpf Ur Squamous Epith Cells (0-5) /hpf Micro UA Comment Urine Culture Comments 02/19/18 02/19/18 02/19/18 Range/Units 09:56 09:56 10:00 WBC (4.0-11.0) th/mm3 RBC (4.00-5.30) mil/mm3 Hgb (11.6-15.3) gm/dL Hct (35.0-46.0) % MCV (80.0-100.0) fL MCH (27.0-34.0) pg MCHC (32.0-36.0) % RDW (11.6-17.2) % Plt Count (150-450) th/mm3 MPV (7.0-11.0) fL Neut % (Auto) (16.0-70.0) % Lymph % (Auto) (9.0-44.0) % Rich % (Auto) (0.0-8.0) % Eos % (Auto) (0.0-4.0) % Baso % (Auto) (0.0-2.0) % Neut # (Auto) (1.8-7.7) th/mm3 Lymph # (Auto) (1.0-4.8) th/mm3 Rich # (Auto) (0.0-0.9) th/mm3 Eos # (Auto) (0.0-0.4) th/mm3 Baso # (Auto) (0.0-0.2) th/mm3 WBC Differential Differential Comment PT (9.8-11.6) sec INR Ratio APTT (24.3-30.1) sec Sodium (136-145) meq/L Potassium (3.5-5.1) meq/L Chloride (98-107) meq/L Carbon Dioxide (21.0-32.0) meq/L Anion Gap (5-15) meq/L BUN (7-18) mg/dL Creatinine (0.50-1.00) mg/dL Estimated GFR (>89) mL/min Random Glucose (74-106) mg/dL Lactic Acid 1.8 (0.4-2.0) mmol/L Calcium (8.5-10.1) mg/dL Magnesium (1.5-2.5) mg/dL Total Bilirubin (0.2-1.0) mg/dL AST (15-37) U/L ALT (10-53) U/L Alkaline Phosphatase (45-117) U/L Total Creatine Kinase (26-192) U/L Troponin I (0.02-0.05) ng/mL B-Natriuretic Peptide 9 (0-100) pg/mL Total Protein (6.4-8.2) g/dL Albumin (3.4-5.0) g/dL Urine Color Straw (Yellw/Straw) Urine Clarity Clear (Clear) Urine pH 8.0 (5.0-8.5) Ur Specific [place] 1.005 (1.002-1.035) Urine Protein Negative (Neg-Trace) mg/dL Urine Glucose (UA) Negative (Negative) mg/dL Urine Ketones Negative (Negative) mg/dL Urine Occult Blood Negative (Negative) Urine Nitrate Negative (Negative) Urine Bilirubin Negative (Negative) Urine Urobilinogen Less than 2 (Less than 2) mg/dL Ur Leukocyte Esterase Small H (Negative) Urine RBC 1 (0-3) /hpf Urine WBC Less than 1 (0-5) /hpf Ur Squamous Epith Cells 1 (0-5) /hpf Micro UA Comment Culture not ind Urine Culture Comments Culture not ind Imaging Data Attestation: I personally reviewed and interpreted this imaging study as follows : Radiologist's impression: ITS Impressions Chest X-Ray 02/19/18 09:38 CONCLUSION: Minimal parental changes right suprahilar region. PA and lateral chest would be beneficial when the patient's clinically stable Chest X-Ray 02/19/18 10:43 CONCLUSION: No acute intrathoracic disease. Discharge Plan Discharge Disposition Patient Disposition: 30 Still Patient Discharge Details Discharge Problem: Chest pain Physicians Team ED Provider: Bruna Lynn Primary Care Provider: Rj Orta Rxs /Orders / Referrals /Forms Prescriptions: No Action nifedipine 30 mg Tablet Extended Release 24hr 30 mg PO DAILY RF: 0 Discharge Interventions Interventions: Vital Signs Last Done: 02/19/18 13:31 Status ED Status: Admitted Observation Patient
--- NOTE | 2018-02-19 12:20 | XR ---
EXAM DATE: 02/19/2018 12:15 PM EDT AGE/SEX: 82 years / Female INDICATIONS: Short of breath. CLINICAL DATA: This is the patient's subsequent encounter. Patient reports that signs and symptoms h ave been present for 1 day and indicates a pain score of 1/10. MEDICAL/SURGICAL HISTORY: None. None. COMPARISON: No prior exams available for comparison. FINDINGS: AP and lateral views of the chest demonstrate the lungs to be symmetrically aerated without evidence of mass, infiltrate or effusion. There is hyperaeration bilaterally. The cardiomediastinal contours are unremarkable. Osseous structures are intact. CONCLUSION: No acute intrathoracic disease. Electronically signed by: Calvin Villagomez MD 02/19/2018 12:19 PM EDT
[2018-02-19] MEDS ORDERED: Acetaminophen 500 MG Tablet PO PRN (15:14)
--- NOTE | 2018-02-19 15:14 | ECG ---
Date Performed: 02/19/2018 Time Performed: 09:33:34 PTAGE: 82 years EKG: Sinus rhythm NONSPECIFIC T-WAVE ABNORMALITY BORDERLINE ECG PREVIOUS TRACING : 11/23/2017 17.20 Since the previous tracing, no significant change noted DOCTOR: Fermín Moncada Interpretating Date/Time 02/19/2018 15:12:36
--- NOTE | 2018-02-19 17:06 | P.HPCA ---
History of Present Illness Primary Care Physician: Rj Orta MD Chief Complaint: Chest tightness and dyspnea History of Present Illness: 83 year old elderly female with history of hypertension presents to ER for further evaluation of multiple complaints of weakness, dyspnea and chest tightness. Somewhat of a poor historian however daughter at bedside and able to assist with HPI. Nonexertional and exertional dyspnea x1 one month. Occasional accompanying left inflammatory area chest tightness. Unable to give duration of symptoms. No associated symptoms nausea, vomiting, dyspnea, or diaphoresis. No precipitating or relieving factors. Second location of chest discomfort left anterior chest. Characterized as ache. No radiation. Duration constant, unable to give exact onset. Precipitating factors palpation. No relieving factors. Approximately 2 weeks ago bp medication increased to twice daily. Since this time, feels weak and fatigue after taking medication. Fears of falling. No falls or syncope episodes. In the past, told she has heart murmur and PCP offered echocardiogram in the past. Declined further testing at that time. - Diagnosis (1) Atypical chest pain (2) Dyspnea, unspecified (3) Hypertension Inpatient Certification: I certify that the inpatient services were ordered in accordance with Medicare regulations governing the order. This includes certification that hospital inpatient services are reasonable and necessary and in the case of services not specified as inpatient-only under 42 CFR 419.22(n), that they are appropriately provided as inpatient services in accordance to with the 2-midnight benchmark under 43 CFR 412.3(e) Estimated Total Length of Stay (Days): 1 Plans for Post Hospital Care: Home Review of Systems Constitutional: Reports daytime sleepiness, Reports fatigue, Reports weakness, Denies body ache(s), Denies chills, Denies fever(s), Denies headache(s), Denies malaise Cardiovascular: Reports chest pain, Reports lightheadedness, Reports shortness of breath, Reports shortness of breath with activity, Denies fainting, Denies fast heart rate, Denies generalized swelling, Denies leg pain with activity, Denies radiating jaw, neck or arm pain, Denies shortness of breath causing sudden awakening, Denies slow heart rate Comments: Reports "skipped" beats. Respiratory: Reports shortness of breath, Reports shortness of breath with activity, Denies chest congestion, Denies cough, Denies pain on inspiration, Denies wheezing Gastrointestinal: Denies abdominal pain Musculoskeletal: Reports muscle weakness, Reports neck pain Comments: Chronic neck and back pain. Uses walker. Neurologic: Reports unsteadiness, Denies fainting, Denies frequent falls, Denies lack of coordination, Denies numbness, Denies tingling Psychiatric: Denies anxiety, Denies depression Comments: States "family thinks I am stressed, but I think I have normal daily stress is all." [facility] - History History Provided By: Patient (Lives independently, daughter lives next door to her. 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 - Medical History Medical History: Medical History (Last Updated 02/19/18 @ 16:44 by EUGENIE Whittaker) Chronic neck and back pain Hypertension TIA (transient ischemic attack) - Surgical History Surgical History: Surgical History (Last Reviewed 02/19/18 @ 11:17 by Bruna Lynn MD) History of eye surgery - Tobacco History Second Hand Smoke Exposure: No Tobacco Use In Past 30 Days: No Smoking Status: Never smoker - Alcohol History How Often Do You Have a Drink Containing Alcohol: Never - Substance Use History Substance History: No History of Abuse - Travel History History of Recent Travel: No Recent Travel in the [place] Within the Last 8 Weeks: No Recent Travel Out of the Country Within the Last 8 Weeks: No - Immunization History Tetanus Immunization: <5 Years Hx Influenza Vaccine This Season: Yes Medications and Allergies Active Medications: Active Medications Acetaminophen (Tylenol) 500 mg PO Q4H PRN PRN Reason: HEADACHE Nitroglycerin (Nitrostat Sl) 0.4 mg SL Q5M PRN PRN Reason: CHEST PAIN Sodium Chloride (Ns Flush) 2 ml IV.FLUSH UNSCH PRN PRN Reason: FLUSH AFTER USING IV ACCESS Sodium Chloride (Ns Flush) 2 ml IV.FLUSH BID CARMENCITA Allergies Allergy/AdvReac Type Severity Reaction Status Date / Time cefepime Allergy Severe RASH Verified 02/19/18 11:26 ceftaroline fosamil Allergy Severe RASH Verified 02/19/18 11:26 cephalexin Allergy Severe "CHEST Verified 02/19/18 11:26 WALDRON LIKE FIRE" clarithromycin Allergy Severe Ulcers Verified 02/19/18 11:26 codeine Allergy Severe CHEST Verified 02/19/18 11:26 TIGHTNESS cortisone Allergy Severe Rash Verified 02/19/18 11:26 iodine Allergy Severe Rash Verified 02/19/18 11:26 latex Allergy Severe Rash Verified 02/19/18 11:26 penicillin G Allergy Severe "CHEST Verified 02/19/18 11:26 BURNED LIKE FIRE" potassium iodide Allergy Severe Rash Verified 02/19/18 11:26 povidone-iodine Allergy Severe Rash Verified 02/19/18 11:26 sodium iodide Allergy Severe Rash Verified 02/19/18 11:26 sodium iodide Allergy Severe Rash Verified 02/19/18 11:26 Sulfa (Sulfonamide Allergy Severe SWELLING" Verified 02/19/18 11:26 Antibiotics) amcinonide AdvReac Severe NOT SURE Verified 02/19/18 11:26 aspirin AdvReac Severe INDIGESTION Verified 02/19/18 11:26 beclomethasone AdvReac Severe NOT SURE Verified 02/19/18 11:26 betamethasone AdvReac Severe NOT SURE Verified 02/19/18 11:26 desoximetasone AdvReac Severe NOT SURE Verified 02/19/18 11:26 dexamethasone AdvReac Severe NOT SURE Verified 02/19/18 11:26 diazepam AdvReac Severe "SEVERE Verified 02/19/18 11:26 HEADACHE" fludrocortisone AdvReac Severe NOT SURE Verified 02/19/18 11:26 flunisolide AdvReac Severe NOT SURE Verified 02/19/18 11:26 fluocinolone acetonide AdvReac Severe NOT SURE Verified 02/19/18 11:26 fluocinonide AdvReac Severe NOT SURE Verified 02/19/18 11:26 fluorometholone AdvReac Severe NOT SURE Verified 02/19/18 11:26 flurandrenolide AdvReac Severe NOT SURE Verified 02/19/18 11:26 fluticasone AdvReac Severe NOT SURE Verified 02/19/18 11:26 fluticasone furoate AdvReac Severe NOT SURE Verified 02/19/18 11:26 hydrocortisone AdvReac Severe NOT SURE Verified 02/19/18 11:26 methylprednisolone AdvReac Severe NOT SURE Verified 02/19/18 11:26 mometasone furoate AdvReac Severe NOT SURE Verified 02/19/18 11:26 prednisolone AdvReac Severe NOT SURE Verified 02/19/18 11:26 prednisone AdvReac Severe NOT SURE Verified 02/19/18 11:26 triamcinolone AdvReac Severe NOT SURE Verified 02/19/18 11:26 PLASTIC/LATEX? AdvReac Mild RASH, Uncoded 02/19/18 11:26 POLYESTER AdvReac Mild "BURNING Uncoded 02/19/18 11:26 FEELING" Home Medications Medication Instructions Recorded Confirmed Type nifedipine 30 mg PO DAILY 02/19/18 02/19/18 History Exam Vital signs: Vital Signs 02/19/18 09:26 02/19/18 10:02 02/19/18 13:31 Temperature 97.8 F Pulse Rate 96 H 80 Respiratory Rate 20 18 Blood Pressure 167/79 H 159/74 H Pulse Oximetry 99 96 95 02/19/18 15:38 Temperature Pulse Rate Respiratory Rate Blood Pressure Pulse Oximetry 98 Intake & Output 02/18/18 02/19/18 02/19/18 18:59 06:59 18:59 Weight 81.647 kg - Constitutional no acute distress, average body habitus, cooperative - Routine HEENT Exam Head: Present: normocephalic, atraumatic - Routine Neck Exam Present: supple, full ROM Comments: Bilateral carotid bruits, R>L, most likely referred sound from cardiac murmur. - Routine Chest/Breast/Axilla Exam Chest wall: Present: tenderness (Left anterior chest wall tender with palpation. Left inframmary area non tender with palpation.) - Routine Cardiovascular Exam Present: RRR, murmur. Absent: gallop, rubs, S3, S4, click, JVD Comments: 3/6 systolic murmur heard loudest right sternal border. - Routine Abdominal Exam Present: soft, normoactive bowel sounds. Absent: tenderness, distended, guarding, firm, rigid - Routine Extremities Exam Present: pulses intact Comments: Bilateral lower extremity trace edema. Various veins bilateral. - Routine Skin Exam Present: intact, warm - Routine Neurological Exam Present: alert, oriented X3, moving all extremities, normal tone, normal speech Poor historian, forgetful. Results 02/19/18 09:56 02/19/18 09:56 Cardiac Enzymes 02/19/18 02/19/18 Range/Units 09:56 09:56 AST 20 (15-37) U/L Troponin I Less than 0.02 L (0.02-0.05) ng/mL B-Natriuretic Peptide 9 (0-100) pg/mL Coagulation 02/19/18 02/19/18 Range/Units 09:56 09:56 PT 9.4 L (9.8-11.6) sec APTT 27.3 (24.3-30.1) sec B-Natriuretic Peptide 9 (0-100) pg/mL CBC 02/19/18 Range/Units 09:56 WBC 7.9 (4.0-11.0) th/mm3 RBC 5.34 H (4.00-5.30) mil/mm3 Hgb 15.5 H (11.6-15.3) gm/dL Hct 46.0 (35.0-46.0) % Plt Count 244 (150-450) th/mm3 Neut # (Auto) 5.9 (1.8-7.7) th/mm3 Lymph # (Auto) 1.1 (1.0-4.8) th/mm3 [place] # (Auto) 0.7 (0.0-0.9) th/mm3 Eos # (Auto) 0.1 (0.0-0.4) th/mm3 Baso # (Auto) 0.0 (0.0-0.2) th/mm3 Comprehensive Metabolic Panel 02/19/18 Range/Units 09:56 Sodium 137 (136-145) meq/L Potassium 3.8 (3.5-5.1) meq/L Chloride 100 (98-107) meq/L Carbon Dioxide 24.2 (21.0-32.0) meq/L BUN 19 H (7-18) mg/dL Creatinine 0.91 (0.50-1.00) mg/dL Calcium 10.0 (8.5-10.1) mg/dL AST 20 (15-37) U/L ALT 30 (10-53) U/L Alkaline Phosphatase 95 (45-117) U/L Total Protein 8.2 (6.4-8.2) g/dL Albumin 4.1 (3.4-5.0) g/dL Intake and Output 02/19/18 02/19/18 02/19/18 06:59 14:59 22:59 Other: Weight 81.647 kg Patient Weight 02/20/18 06:59 Weight 81.647 kg EKG interpretations - EKG EKG results cardiology: sinus rhythm, normal axis, normal QRS, normal ST/T Caprini VTE Risk Assessment Caprini VTE Risk Assessment: Moderate/High Risk (score >= 2) Caprini Risk Assessment Model: Point Value = 1 Point Value = 2 Point Value = 3 Point Value = 5 Age 41-60 Minor surgery BMI > 25 kg/m2 Swollen legs Varicose veins or History of unexplained or recurrent spontaneous Oral contraceptives or hormone replacement Sepsis (< 1 month) Serious lung disease, including pneumonia (< 1 month) Abnormal pulmonary function Acute myocardial infarction Congestive heart failure (< 1 month) History of inflammatory bowel disease Medical patient at bed rest Age 61-74 Arthroscopic surgery Major open surgery (> 45 min) Laparoscopic surgery (> 45 min) Malignancy Confined to bed (> 72 hours) Immobilizing plaster cast Central venous access Age >= 75 History of VTE Family history of VTE Factor V Leiden Prothrombin [id number] Lupus anticoagulant Anticardiolipin antibodies Elevated serum homocysteine Heparin-induced thrombocytopenia Other congenital or acquired thrombophilia Stroke (< 1 month) Elective arthroplasty Hip, pelvis, or leg fracture Acute spinal cord injury (< 1 month) Prophylaxis Regimen: Total Risk Factor Score Risk Level Prophylaxis Regimen 0-1 Low Early ambulation 2 Moderate Order ONE of the following: *Sequential Compression Device (SCD) *Heparin 5000 units SQ BID 3-4 Higher Order ONE of the following medications: *Heparin 5000 units SQ TID *Enoxaparin/Lovenox 40 mg SQ daily (WT < 150 kg, CrCl > 30 mL/min) *Enoxaparin/Lovenox 30 mg SQ daily (WT < 150 kg, CrCl > 10-29 mL/min) *Enoxaparin/Lovenox 30 mg SQ BID (WT < 150 kg, CrCl > 30 mL/min) AND/OR *Sequential Compression Device (SCD) 5 or more Highest Order ONE of the following medications: *Heparin 5000 units SQ TID (Preferred with Epidurals) *Enoxaparin/Lovenox 40 mg SQ daily (WT < 150 kg, CrCl > 30 mL/min) *Enoxaparin/Lovenox 30 mg SQ daily (WT < 150 kg, CrCl > 10-29 mL/min) *Enoxaparin/Lovenox 30 mg SQ BID (WT < 150 kg, CrCl > 30 mL/min) AND *Sequential Compression Device (SCD) Assessment and Plan - Assessment (1) Atypical chest pain Code(s): R07.89 - Other chest pain Status: Acute Plan: Admitted to chest pain center. Continue ACS protocol initiated in ER. Monitor on telemetry overnight. Will be seen and evaluated by Dr. Fermín Moncada in morning. Discussed in length with patient and her daughter if stress testing recommended and was abnormal would they agree to cardiac catheterization. Patient verbalized she would not agree to cardiac catheterization. Daughter requesting an echocardiogram to be completed during this visit. Recommended patient and family members discuss what cardiac testing they would agree to. Discussed establishing with a brand manager for outpatient echocardiogram. (2) Dyspnea, unspecified Code(s): R06.00 - Dyspnea, unspecified Status: Acute Plan: No acute findings on chest xray or physical exam. Continue to monitor Spo2. (3) Hypertension Code(s): I10 - Essential (primary) hypertension Status: Chronic Plan: Continue to monitor. Continue nifedipine.
[2018-02-19 18:35] LABS: Creatine Kinase 69 U/L (26-192)
[2018-02-19 20:09] LABS: Creatine Kinase 115 U/L (26-192)
[2018-02-20] MEDS ORDERED: Regadenoson Inj 0.4 MG/5 ML Syringe IV.PUSH ONE (09:44)
--- NOTE | 2018-02-20 11:26 | NM ---
EXAM DATE: 02/20/2018 10:57 AM EDT AGE/SEX: 82 years / Female INDICATIONS:Angina. . Weakness, dyspnea and left sided chest pain for one month. CLINICAL DATA: This is the patient's initial encounter. Patient reports that signs and symptoms have been present for 1 day and indicates a pain score of 7/10. MEDICAL/SURGICAL HISTORY: Hypertension. Stroke. Non-responsive. Eye surgery. COMPARISON: No prior exams available for comparison. No external comparison. DOSE: 8.6 mCi Tc 99m Myoview at rest 25.8 mCi Cu95m-Ssdqtmx at stress 0.4 mg Lexiscan STRESS SYMPTOMS: Chest pressure. EJECTION FRACTION: >70 % TECHNIQUE: The patient underwent pharmacologic stress with infusion of prescribed dose. Continuous ECG tracing was monitored during stress. Gated SPECT imaging was performed after stress and conventi onal SPECT imaging was performed at rest. The examination was performed on a SPECT/CT scanner, both attenuation and non-corrected datasets were reviewed. FINDINGS: Distribution: The maximum perfused segment at stress is in the anterior wall. Perfusion Study: The pattern of perfusion at stress is within normal limits. Gated Study: There are intact wall motion and wall thickening without hypokinetic or dyskinetic segm ents. The ejection fraction is calculated at >70%. RISK CATEGORY: Low (<1% Annual Motality Rate) CONCLUSION: Unremarkable myocardial perfusion scan. Electronically signed by: Fermín More MD 02/20/2018 11:25 AM EDT
--- NOTE | 2018-02-20 17:18 | ECG ---
Date Performed: 02/19/2018 Time Performed: 16:36:11 PTAGE: 82 years EKG: Sinus rhythm POSSIBLE ANTERIOR MYOCARDIAL INFARCTION POSSIBLE INFERIOR MYOCARDIAL INFARCTION ABNORMAL ECG PREVIOUS TRACING : 02/19/2018 09.33 Since the previous tracing, no significant change noted DOCTOR: Arnoldo Espinal Interpretating Date/Time 02/20/2018 17:17:38
--- NOTE | 2018-02-20 17:19 | ECG ---
Date Performed: 02/19/2018 Time Performed: 19:15:21 PTAGE: 82 years EKG: Sinus rhythm NONSPECIFIC T-WAVE ABNORMALITY BORDERLINE ECG PREVIOUS TRACING : 02/19/2018 16.36 Since the previous tracing, no significant change noted DOCTOR: Arnoldo Espinal Interpretating Date/Time 02/20/2018 17:17:50
--- NOTE | 2018-02-26 17:44 | TR ---
Date Performed: 02/20/2018 Time Performed: 09:52:54 DOCTOR: Fermín Moncada DRUG LIST: CLINICAL HISTORY: REASON FOR TEST: REASON FOR ENDING: OBSERVATION: CONCLUSION: COMMENTS: Lexiscan stress test was performed under standard four minute protocol. Radionuclide was injected one minute prior to ending the test. No electrocardiographic abormalities were present t o suggest ischemia. Nuclear imaging and interpretation are pending.
== END 2018-02-20 15:04 | disposition home or self-care (01) ==
LOC: NEPHCDU 09:19 → NEDA 09:19 → NEPC 09:19 → NEPHCDU 16:59
PROVIDERS: ADMIT Internal Medicine Cardiovascular Disease; ATTEND Internal Medicine Cardiovascular Disease
DX: G89.29 Other chronic pain; Z88.0 Allergy status to penicillin; Z79.899 Other long term (current) drug therapy; I10 Essential (primary) hypertension; M54.9 Dorsalgia, unspecified; R06.02 Shortness of breath; R06.09 Other forms of dyspnea; R09.89 Other specified symptoms and signs involving the circulatory and respiratory systems; I20.9 Angina pectoris, unspecified; R07.89 Other chest pain; Z86.73 Personal history of transient ischemic attack (TIA), and cerebral infarction without residual deficits; R53.1 Weakness; R01.1 Cardiac murmur, unspecified; M54.2 Cervicalgia